=== PATIENT | female | born 1975 | race Caucasian/White ===

== ENCOUNTER 2019-05-14 17:01 | Inpatient (IN) | payer OTHER ==
[~2019-05-14] VITALS: Ht 167.6 cm; Wt 81.6 kg
[2019-05-14 17:01] VITALS: BP_SYST 144
--- NOTE | 2019-05-14 17:16 | NUR ---
Patient triaged and placed in waiting room. VSS and patient appears in no acute distress at this time. Accompanied by , awaiting available bed, and MD notified of need for MSE.
--- NOTE | 2019-05-14 18:13 | NUR ---
Patient to ER bed 01 to gown for evaluation. Side rails up. Report given to MONICO Zamorano
--- NOTE | 2019-05-14 18:20 | NUR ---
ER Dr. Banks at bedside examining patient.
[2019-05-14] MEDS ORDERED: METOCLOPRAMIDE HCL 10 MG/2 ML VIAL IVP ONE (18:30)
[2019-05-14] MEDS ORDERED: MECLIZINE HCL 25 MG TABLET (ANITVERT) PO ONE (18:30)
[2019-05-14 18:44] LABS: BASOPHILS # (AUTO) 0.1 K/uL (0.0-0.2); BASOPHILS % (AUTO) 0.6 % (0.0-2.0); EOSINOPHILS % (AUTO) 0.1 % (0.0-4.0); HEMATOCRIT 37.9 % (36-48); HEMOGLOBIN 12.1 g/dL (12.0-16.0); LYMPHOCYTES # (AUTO) 1.2 K/uL (1.0-5.5); LYMPHOCYTES % (AUTO) 10.1 % (20.5-51.5); MEAN CORPUSCULAR HEMOGLOBIN 24 pg (27-31); MEAN CORPUSCULAR HGB CONC 32 % (32-36); MEAN CORPUSCULAR VOLUME 74 fL (79.0-98.0); MONOCYTES # (AUTO) 0.4 K/uL (0.0-1.0); MONOCYTES % (AUTO) 3.7 % (1.7-9.3); NEUTROPHILS # (AUTO) 10.2 K/uL (1.8-7.7); NEUTROPHILS % (AUTO) 85.5 % (40.0-70.0); PLATELET COUNT (AUTO) 191 K/uL (130-430); RED BLOOD CELL COUNT(AUTO) 5.13 MIL/uL (4.2-6.2); RED CELL DISTRIBUTION WIDTH 14.6 % (9.0-15.0); WHITE BLOOD COUNT (AUTO) 11.9 K/uL (4.8-10.8)
[2019-05-14 18:54] LABS: CALCIUM 9.5 mg/dL (8.4-11.0); CREATININE 0.66 mg/dL (0.55-1.30); POTASSIUM 3.8 mmol/L (3.5-5.1)
[2019-05-14 18:55] LABS: PROTHROMBIN TIME 9.9 SECS (9.5-12.5)
[2019-05-14 18:59] LABS: ALBUMIN 3.6 g/dL (3.4-4.8); TOTAL BILIRUBIN 0.8 mg/dL (0.0-1.0)
--- NOTE | 2019-05-14 19:00 | NUR ---
Patient presented to ER with c/o dizziness, nausea and vomiting. Patient A&Ox4, ambulatory to ER, skin pink, Nausea and vomiting, denies diarrhea. Patient states dizziness started last night after dinner, Nausea started this morning, patient states she went to urgent care she was treated for dizzines. Patient states the dizzines, nausea continued and vomiting started this evening.
--- NOTE | 2019-05-14 19:04 | NUR ---
Patient to CT with radiology staff
--- NOTE | 2019-05-14 19:25 | NUR ---
Report given to Papa MARC
--- NOTE | 2019-05-14 19:30 | NUR ---
No needs verbalized at this time, VSS, KACIE.
--- NOTE | 2019-05-14 20:05 | NUR ---
Admission Note Received patient from ER with diagnosis of dizziness/elevated trop. Initial Plan of Care discussed-patient verbalized understanding. Family at bedside. Oriented to room, call light, pain management and safety.
--- NOTE | 2019-05-14 20:30 | NUR ---
Pt resting quietly with eyes closed, respirations even and non-labored, NAD.
--- NOTE | 2019-05-14 21:16 | NUR ---
Patient will be admitted to care of Dr. Mercado. Admitted to Tele unit. Will go to room 111A. Belongings list completed. Summary report printed. Report will be given at bedside. Transfer to via ACLS protocol. Licensed nurse present. IV present no signs or symptoms of infiltration.
--- NOTE | 2019-05-14 21:20 | NUR ---
ROUNDS PATIENT RESTING COMFORTABLY IN BED, NOT IN DISTRESS, VITALS STABLE, DENIES ANY DIZZINESS, PAIN, N/V AT THIS TIME. ADMISSION ASSESSMENT DONE AND DOCUMENTED. SEE FLOWSHEET. ORIENTED TO HER ROOM, PHONE, TV AND CALL LIGHT. NEEDS ATTENDED TO. SAFETY AND FALL PRECAUTION MEASURES IN PLACED. BED IN LOW AND LOCKED POSITION. CALL LIGHT PLACED WITHIN REACH.
[2019-05-14] MEDS ORDERED: TAMO20TA4 PO (21:24)
[2019-05-14 22:13] VITALS: BP_SYST 170
--- NOTE | 2019-05-15 00:12 | NUR ---
PATIENT RESTING: Patient resting quietly. No acute distress noted. Vital signs within normal range.
[2019-05-15 00:40] VITALS: BP_SYST 146
--- NOTE | 2019-05-15 02:10 | NUR ---
ROUNDS PATIENT AWAKE, ASSISTED HER TO THE BATHROOM, NO COMPLAINTS AT THIS TIME. WILL CONTINUE TO MONITOR.
--- NOTE | 2019-05-15 04:13 | NUR ---
ROUNDS PATIENT ASLEEP, NOT IN DISTRESS, NO SIGNS OF ANY PAIN AND DISCOMFORT NOTED. WILL CONTINUE TO MONITOR.
--- NOTE | 2019-05-15 06:31 | NUR ---
CLOSING NOTES PATIENT AWAKE, VITALS STABLE, NO COMPLAINTS AT THIS TIME. ALL NEEDS ATTENDED TO. SAFETY AND FALL PRECAUTION MEASURES MAINTAINED. CALL LIGHT PLACED WITHIN REACH.
--- NOTE | 2019-05-15 07:25 | NUR ---
Opening note Patient resting in bed, no complaints of pain or discomfort. No SOB, no nausea, no vomiting. Patient states she feels dizzy when she tries to get up. Educated patient to stay in bed, and ask for assistance before ambulating, patient verbalized understanding. IV site patent and intact, no bleeding noted. On safety precautions, bed in lowest position, bed alarm on, call light within reach, 2 side rails up. Will continue to monitor.
[2019-05-15 08:08] VITALS: BP_SYST 146
--- NOTE | 2019-05-15 09:30 | NUR ---
Rounds Patient sitting up in bed, family at bedside. No complaints of pain, offered patient bathroom assistance, water and assessed for nausea. Patient declines any needs at this time. Reminded patient to use call light when assistance is needed. Patient verbalized understanding.
--- NOTE | 2019-05-15 11:20 | NUR ---
MD rounds Patient resting in bed, MD at bedside. Dr recommends patient neuro, and cardio consult. New order for SCD bilateral lower legs noted and carried out.
[2019-05-15 11:29] VITALS: BP_SYST 148
[2019-05-15] MEDS ORDERED: HYDROcodone/ACETAMIN 5-325 MG TAB (NORCO/ VICODIN) PO PRN (11:45)
[2019-05-15] MEDS ORDERED: LORazepam 2 MG/ML VIAL IVP PRN (11:45)
[2019-05-15] MEDS ORDERED: ACETAMINOPHEN 325 MG TABLET PO PRN (11:45)
[2019-05-15] MEDS ORDERED: HYDROcodone/ACETAMIN 10-325 MG TAB PO PRN (11:45)
[2019-05-15] MEDS ORDERED: ONDANSETRON HCL 4 MG/2 ML VIAL IVP PRN (11:45)
--- NOTE | 2019-05-15 11:50 | NUR ---
CONSULT: CONSULT CALLED FOR DR. LAZARO BONDS I SPOKE WITH SEJAL ROCA REASON FOR CONSULT: DIZZINESS REQUESTING CONSULT: DR. TD Ch, SHUTTLE FILLER PHONE NUMBER:[phone]
--- NOTE | 2019-05-15 11:52 | NUR ---
CONSULT: CONSULT CALLED FOR DR. Vitaliy GARCIA I SPOKE WITH SEJAL ROCA REASON FOR CONSULT: LEUKOCYTOSIS REQUESTING CONSULT: DR. TD Ch, TRASH COLLECTOR SUPERVISOR PHONE NUMBER:[phone]
--- NOTE | 2019-05-15 11:53 | NUR ---
CONSULT: CONSULT CALLED FOR DR. KWONG I SPOKE WITH SATINDER ROCA REASON FOR CONSULT: CHEST PAIN/ELEVATED TROPONIN REQUESTING CONSULT: DR. TD Ch, WIRE WRAPPING MACHINE OPERATOR PHONE NUMBER:[phone]
--- NOTE | 2019-05-15 12:30 | NUR ---
PAGED PAGED ARAMNDO ARITA AT [phone] SPOKE WITH THE ANSWERING SERVICE, CYN WATKINS DIRECTOR LEARNING SERVICES AT [phone] SPOKE WITH SATINDER.
--- NOTE | 2019-05-15 12:35 | NUR ---
Paged Dr. Geovanna Austin called back, reported critical value of troponin, Dr to see patient, no new orders at this time.
--- NOTE | 2019-05-15 13:00 | NUR ---
Dr. Austin Patient resting in bed, Dr. Austin at bedside, recommends EKG, and awaiting results of 2D echo. stated to call if abnormal.
[2019-05-15] MEDS: NORMAL SALINE 5 ML DISP.SYRIN IVF SCH ×2 (13:30→22:58)
[2019-05-15] MEDS ORDERED: NORMAL SALINE 5 ML DISP.SYRIN IVF SCH (14:00)
--- NOTE | 2019-05-15 15:11 | NUR ---
Dr. Jensen Patient resting in bed, Dr. Jensen at bedside, patient in stable condition at this time. No nausea, no vomiting noted.
[2019-05-15 15:42] VITALS: BP_SYST 148
--- NOTE | 2019-05-15 16:47 | NUR ---
Rounds patient resting in bed at this time, No complaints of pain, no vomiting noted. Offered patient ice chips, and snacks. family at bedside
--- NOTE | 2019-05-15 18:48 | NUR ---
Closing note Patient resting in bed, no complaints of pain or discomfort. No SOB, no nausea, no vomiting at this time. Educated patient to stay in bed, and ask for assistance before ambulating, patient verbalized understanding. IV site on right hand 22 gauge, patent and intact, no bleeding noted. SCD applied on bilateral lower extremities. On safety precautions, bed in lowest position, bed alarm on, call light within reach, 2 side rails up. Patient in stable condition, All needs met.
--- NOTE | 2019-05-15 19:20 | NUR ---
Opening Notes Received bed side report in room. Patient resting with elevated hob and no sob or pain. Patient states no nausea at this time. Complaints of left ear discomfort. Respiratory wnl. heart sounds wnl. IV on the right hand 22 gauge s/l with no infiltration at this time. oriented the patient to the room and use of the call light. Vitals to be taken on the Right arm only due to hx of left side lumpectomy. Call light within reach and bed low and locked. Will monitor on rounds.
[2019-05-15 20:00] VITALS: BP_SYST 144
[2019-05-15] MEDS: MECLIZINE HCL 25 MG TABLET (ANITVERT) PO SCH (20:03)
--- NOTE | 2019-05-15 22:15 | NUR ---
Patient in bed with and family at bedside. Requesting reclining chair so daughter can stay over night. No pain or respiratory distress. Call light within reach. No needs at this time.
[2019-05-16 00:24] VITALS: BP_SYST 124
--- NOTE | 2019-05-16 00:55 | NUR ---
Patient resting in bed with daughter at bedside. No complaints of pain or respiratory distress. Call light within reach.
--- NOTE | 2019-05-16 02:05 | NUR ---
Patient asleep in bed with visualized rise and fall of chest. No appearance of pain or respiratory distress. call light within reach.
[2019-05-16] MEDS ORDERED: cefTRIAXone 1 GM in D5W 50 ML IV SCH (03:00)
[2019-05-16] MEDS ORDERED: cefTRIAXone 1 GM VIAL ONE (03:55)
--- NOTE | 2019-05-16 04:08 | NUR ---
Patient administered Rocephin ATB, educated on medication indication and side effects. Acknowledged understanding. No questions at this time. Patient resting in bed. No complaints of pain respiratory distress.
[2019-05-16] MEDS: NORMAL SALINE 5 ML DISP.SYRIN IVF SCH ×2 (05:09→14:11)
[2019-05-16 06:59] LABS: BASOPHILS % (AUTO) 0.8 % (0.0-2.0); EOSINOPHILS # (AUTO) 0.1 K/uL (0.0-0.4); HEMATOCRIT 35.9 % (36-48); HEMOGLOBIN 11.3 g/dL (12.0-16.0); LYMPHOCYTES % (AUTO) 35.8 % (20.5-51.5); MEAN CORPUSCULAR HEMOGLOBIN 24 pg (27-31); MEAN CORPUSCULAR HGB CONC 32 % (32-36); MEAN CORPUSCULAR VOLUME 75 fL (79.0-98.0); MONOCYTES # (AUTO) 0.4 K/uL (0.0-1.0); MONOCYTES % (AUTO) 6.6 % (1.7-9.3); NEUTROPHILS # (AUTO) 3.1 K/uL (1.8-7.7); NEUTROPHILS % (AUTO) 55.8 % (40.0-70.0); PLATELET COUNT (AUTO) 160 K/uL (130-430); RED CELL DISTRIBUTION WIDTH 14.5 % (9.0-15.0); WHITE BLOOD COUNT (AUTO) 5.6 K/uL (4.8-10.8)
[2019-05-16 07:14] LABS: ALBUMIN 3.1 g/dL (3.4-4.8); CALCIUM 8.9 mg/dL (8.4-11.0); CREATININE 0.89 mg/dL (0.55-1.30); POTASSIUM 3.6 mmol/L (3.5-5.1)
--- NOTE | 2019-05-16 07:34 | NUR ---
Closing Notes Patient in bed resting. no complaints of pain or respiratory distress. No urine sample obtained during the night. IV on the right hand 22 gauge, patent with no s/s of infiltration. All needs have been met and will endorse care to oncoming shift.
--- NOTE | 2019-05-16 07:44 | NUR ---
Patient awake, alert, and oriented x4. Patient was assisted to restroom and instructed to provide a urine sample. Patient verbalized understanding.
[2019-05-16 08:12] VITALS: BP_SYST 127
[2019-05-16] MEDS: MECLIZINE HCL 25 MG TABLET (ANITVERT) PO SCH (08:15)
[2019-05-16] MEDS ORDERED: TAMOXIFEN CITRATE 10 MG TABLET PO SCH (09:00)
--- NOTE | 2019-05-16 10:00 | NUR ---
Patient is resting comfortably in bed.
[2019-05-16 11:12] LABS: BILIRUBIN,URINE NEGATIVE (NEGATIVE); BLOOD, URINE NEGATIVE (NEGATIVE); CLARITY/URINE CLOUDY (CLEAR); COLOR,URINE YELLOW (YELLOW); GLUCOSE,URINE NEGATIVE (NEGATIVE); KETONES,URINE NEGATIVE (NEGATIVE); LEUKOCYTE ESTERASE ,URINE NEGATIVE (NEGATIVE); NITRITE, URINE NEGATIVE (NEGATIVE); PROTEIN URINE NEGATIVE (NEGATIVE); UROBILINOGEN,URINE 0.2 (0.2-1.0)
[2019-05-16 12:00] VITALS: BP_SYST 114
--- NOTE | 2019-05-16 12:00 | NUR ---
Patient is sleeping in bed comfortably. No signs or symptoms of distress noted.
--- NOTE | 2019-05-16 14:00 | NUR ---
Patient is sleeping in bed. No signs or symptoms of distress noted.
[2019-05-16] MEDS ORDERED: MECL-110 PO (15:39)
[2019-05-16 15:46] VITALS: BP_SYST 112
[2019-05-16 16:00] VITALS: BP_SYST 116
--- NOTE | 2019-05-16 16:27 | NUR ---
D/C Patient Patient given medication reconciliation form and D/C instructions. Exit Care provided. Patient verbalized understanding. MD discussed with patient the results and treatment provided. Ambulatory with steady gait for discharge to home. Patient in stable condition, ID band removed. IV catheter removed, intact and dressing applied, no active bleeding. Rx of meclizine given. Patient educated on pain management. All belongings sent with patient.
== END 2019-05-16 16:30 | disposition home or self-care (01) | DRG 149 ==
LOC: SED 17:01 → STU 20:50 → SMU 05-15 12:15 → STU 05-15 12:36
PROVIDERS: ADMIT Preventive Medicine Preventive Medicine/Occupational Environmental Medicine; ATTEND Preventive Medicine Preventive Medicine/Occupational Environmental Medicine
DX: H81.10 Benign paroxysmal vertigo, unspecified ear (principal); E87.1 Hypo-osmolality and hyponatremia; I10 Essential (primary) hypertension; D72.829 Elevated white blood cell count, unspecified; H91.90 Unspecified hearing loss, unspecified ear; R73.9 Hyperglycemia, unspecified; R07.9 Chest pain, unspecified; R55 Syncope and collapse; R79.89 Other specified abnormal findings of blood chemistry; Z85.3 Personal history of malignant neoplasm of breast; Z92.3 Personal history of irradiation; Z98.891 History of uterine scar from previous surgery
CPT/HCPCS: 36415; 70450-TC; 71045; 80053; 80061; 81003; 83735-TC; 84100-TC; 84484; 85025; 85610-TC; 85730-TC; 87040-TC; 87086; 93005; 93306; 96374; 99285; G0378; J0696; J2405; J2765; J7060; J8597